=== PATIENT | male | born 1970 | race Caucasian/White ===

== ENCOUNTER 2018-05-19 22:14 | Emergency (ER) | payer BC, OTHER ==
[2018-05-19] MEDS ORDERED: THROMBIN/GELATIN FOAM HEMOSTAT (THROMBI-GEL) TP ONE (22:23)
--- NOTE | 2018-05-19 22:23 | Emergency Department Record ---
History of Present Illness - General Stated Complaint: LT THUMB LAC Time Seen by Provider: 05/19/18 22:16 Source: Patient, Family Mode of Arrival: Ambulatory Limitations: No limitations - History of Present Illness Initial Commments: 48 yo male presents after injuring his left thumb. He was preparing a meal and cut his thumb with a kitchen knife. He denies and numbness or tingling. No loss in ROM. His tetanus is up to date. He is right handed. -: Minutes(s) Extremity Location: Left: Hand Place: Home Context: Accidental, Sharp object use Associated Symptoms: None Treatments Prior to Arrival: Bandage - [place]adi Coma Scale Eye Response: (4) Open spontaneously Motor Response: (6) Obeys commands Verbal Response: (5) Oriented [place] Total: 15 - Related Data Home Medications Medication Instructions Recorded Confirmed Last Taken Ezetimibe 5 mg PO ASDIR 05/19/18 05/19/18 Unknown Omeprazole 40 mg PO DAILY PRN 05/19/18 05/19/18 Unknown Rosuvastatin Calcium 2.5 mg PO ASDIR 05/19/18 05/19/18 Unknown Allergies Allergy/AdvReac Type Severity Reaction Status Date / Time No Known Drug Allergies Allergy Verified 05/19/18 22:20 Review of Systems Constitutional: Denies: Chills, Fever, Weakness Eyes: Denies: Eye discharge ENT: Denies: Congestion, Throat pain Respiratory: Denies: Cough Cardiovascular: Denies: Chest pain, Palpitations, Syncope Endocrine: Denies: Fatigue Gastrointestinal: Denies: Abdominal pain, Diarrhea, Nausea, Vomiting Musculoskeletal: Reports: As per HPI, Other Skin: Reports: As per HPI, Other Neurological: Denies: Numbness, Tingling, Weakness Psychiatric: Denies: Anxiety Hematological/Lymphatic: Denies: Easy bleeding, Easy bruising Physical Exam - General General Appearance: Alert, Oriented x3, Cooperative, No acute distress Limitations: No limitations - Head Head exam: Atraumatic, Normal inspection - Eye Eye exam: Normal appearance. negative: Conjunctival injection - ENT ENT exam: Normal exam Ear exam: Normal external inspection Nasal Exam: Normal inspection Mouth exam: Normal external inspection - Neck Neck exam: Normal inspection - Cardiovascular Peripheral Pulses: 2+: Radial (L) - Extremities Extremities exam: Full ROM, Normal capillary refill. negative: Normal inspection Image of Hand: 1 - 1cm avulsion tip injury. No bleeding. Clean - Neurological Neurological exam: Alert, Oriented X3 - Psychiatric Psychiatric exam: Normal affect, Normal mood - Skin Skin exam: Other (avulsion) Course - Reevaluation(s) Reevaluation #1: 05/19/18 22:43 The wound is a 7mm x 11mm The wound was clean and rinsed Thrombigel foam was placed on the wound with good results A loose bulky dressing was placed for support and protection We discussed home care, reasons to return and followup with the PCP Disposition Disposition: Discharge Clinical Impression: Avulsion of finger tip Qualifiers: Encounter type: initial encounter Qualified Code(s): S61.209A - Unspecified open wound of unspecified finger without damage to nail, initial encounter Disposition: Home, Self-Care Condition: (1) Good Instructions: Skin Avulsion (ED) Additional Instructions: Keep the area clean Keep the dressing on the next 48 hours then gently soak and remove Return if you have any bleeding, pain, redness or concerns Call your doctor for a recheck this week to monitor the healing Time of Disposition: 22:43 Quality - Quality Measures Quality Measures: N/A - Blood Pressure Screening Does Patient Have Any of the Following: No Systolic Measurement: ~ Screening for High Blood Pressure: < Normal BP, F/U Not Required > [[id number]]
[2018-05-19] MEDS ORDERED: ONDANSETRON 4 MG ODT TABLET SL ONE (22:38)
== END 2018-05-19 23:00 | disposition home or self-care (01) ==
LOC: ER 22:14
DX: S61.012A Laceration without foreign body of left thumb without damage to nail, initial encounter (principal); W26.0XXA Contact with knife, initial encounter; Y93.G1 Activity, food preparation and clean up; Y92.000 Kitchen of unspecified non-institutional (private) residence as the place of occurrence of the external cause
CPT/HCPCS: 99283